=== PATIENT | male | born 1975 | race African-American/Black ===

== ENCOUNTER 2017-02-05 19:55 | Emergency (ER) | payer OTHER ==
[~2017-02-05] VITALS: Ht 175.3 cm; Wt 80.0 kg
[2017-02-05 20:10] VITALS: BP 156/97; PULSE 108; RESP 18; TEMP 98.5; O2SAT 97
--- NOTE | 2017-02-05 20:49 | PD ---
HPI Chief Complaint: Psychiatric Symptoms Time Seen by Provider: 20:46 Travel History International Travel<30 days: No Contact w/Intl Traveler<30days: No Traveled to known affect area: No History of Present Illness HPI 41-year-old male presents to the emergency department for Bustos act by local police. According the Bustos act, the patient went to a [employer] and told people he was suicidal and wanted to come off they could not a bridge. The [place] He has been feeling suicidal since. He states he took a [employer] down here to get out of the snow. He has no family in [place]. The patient states that his plan is to jump off a pier. He denies any attempt at this point to hurt himself. The patient denies any medical complaints. He states that he does drink alcohol daily. He has a smell of alcohol on his breath and states that he has been drinking today, but will not tell me how much he has had to drink. Patient also admits to smoking marijuana, but denies any other drug use. Patient denies any medical complaints at this time. Patient states he is living on the streets. [facility] Social History Alcohol Use: Yes Tobacco Use: Yes Substance Use: Yes Allergies-Medications (Allergen,Severity, Reaction): Coded Allergies: No Known Allergies (Unverified , 02/05/17) Reported Meds & Prescriptions Reported Meds & Active Scripts Active No Active Prescriptions or Reported Medications Review of Systems Except as stated in HPI: all other systems reviewed are Neg Physical Exam Narrative GENERAL: Well-developed well-nourished male patient ambulatory. Afebrile., SKIN: Warm and dry. HEAD: Normocephalic. Atraumatic. EYES: No scleral icterus. No injection or drainage. NECK: Supple, trachea midline. No JVD or lymphadenopathy. CARDIOVASCULAR: Regular rate and rhythm without murmurs, gallops, or rubs. RESPIRATORY: Breath sounds equal bilaterally. No accessory muscle use. Lungs sounds are clear to auscultation. GASTROINTESTINAL: Abdomen soft, non-tender, nondistended. MUSCULOSKELETAL: No cyanosis, or edema. PSYCHIATRIC: No delusional thought processes. No hallucinations. Data Data Last Documented VS Vital Signs Date Time Temp Pulse Resp B/P Pulse Ox O2 Delivery O2 Flow Rate FiO2 02/05/17 21:56 92 16 142/78 97 Room Air 02/05/17 20:10 98.5 Orders Complete Blood Count With Diff (02/05/17 20:45) Comprehensive Metabolic Panel (02/05/17 20:45) Psych Screen (02/05/17 20:45) Drug Screen, Random Urine (02/05/17 20:45) Alcohol (Ethanol) (02/05/17 20:45) Nicotine 7 Mg Patch.24 Hr (Habitrol 7 M (02/05/17 22:00) Labs Laboratory Tests Test 02/05/17 20:50 White Blood Count 8.4 TH/MM3 Red Blood Count 4.25 MIL/MM3 Hemoglobin 14.5 GM/DL Hematocrit 42.0 % Mean Corpuscular Volume 98.9 FL Mean Corpuscular Hemoglobin 34.2 PG Mean Corpuscular Hemoglobin 34.6 % Concent Red Cell Distribution Width 13.1 % Platelet Count 266 TH/MM3 Mean Platelet Volume 7.9 FL Neutrophils (%) (Auto) 55.6 % Lymphocytes (%) (Auto) 25.3 % Monocytes (%) (Auto) 10.7 % Eosinophils (%) (Auto) 7.0 % Basophils (%) (Auto) 1.4 % Neutrophils # (Auto) 4.6 TH/MM3 Lymphocytes # (Auto) 2.1 TH/MM3 Monocytes # (Auto) 0.9 TH/MM3 Eosinophils # (Auto) 0.6 TH/MM3 Basophils # (Auto) 0.1 TH/MM3 CBC Comment DIFF FINAL Differential Comment Sodium Level 138 MEQ/L Potassium Level 3.8 MEQ/L Chloride Level 104 MEQ/L Carbon Dioxide Level 25.2 MEQ/L Anion Gap 9 MEQ/L Blood Urea Nitrogen 6 MG/DL Creatinine 0.89 MG/DL Estimat Glomerular Filtration 115 ML/MIN Rate Random Glucose 86 MG/DL Calcium Level 8.7 MG/DL Total Bilirubin 0.2 MG/DL Aspartate Amino Transf 77 U/L (AST/SGOT) Alanine Aminotransferase 52 U/L (ALT/SGPT) Alkaline Phosphatase 101 U/L Total Protein 7.9 GM/DL Albumin 3.6 GM/DL Urine Opiates Screen NEG Urine Barbiturates Screen NEG Urine Amphetamines Screen NEG Urine Benzodiazepines Screen NEG Urine Cocaine Screen NEG Urine Cannabinoids Screen NEG Ethyl Alcohol Level 124 MG/DL MDM Medical Decision Making Medical Screen Exam Complete: Yes Emergency Medical Condition: Yes Medical Record Reviewed: Yes Differential Diagnosis Depression versus anxiety versus substance abuse versus alcohol intoxication versus bipolar disorder Narrative Course 41-year-old male presents to the emergency Department under Bustos act by local police for suicidal ideation. CBC, CMP, alcohol level, urine drug screen are ordered and pending. CBC shows no acute abnormality. CMP shows no acute abnormality. Alcohol level is 124. Urine drug screen is negative. Patient is medically cleared for psychiatric screening and disposition. Mental health screening discussed with the patient. Psychiatric screen ordered. Diagnosis Primary Impression: Depression with suicidal ideation Additional Instructions: Patient is medically cleared for psychiatric screening and disposition. Scripts No Active Prescriptions or Reported Meds Condition: Stable Shyanne Kahn Feb 05, 2017 20:49
[2017-02-05 21:49] LABS: AMPHETAMINE, URINE NEG (NEG); BARBITURATES, URINE NEG (NEG); COCAINE, URINE NEG (NEG)
[2017-02-05 21:56] VITALS: BP 142/78; PULSE 92; RESP 16; O2SAT 97
[2017-02-05] MEDS ORDERED: NICOTINE 7 MG/24 HR PATCH TD ONE (22:00)
[2017-02-05 22:02] LABS: AUTOMATED NEUTROPHIL # 4.6 TH/MM3 (1.8-7.7); BASOPHIL # 0.1 TH/MM3 (0-0.2); BASOPHIL % 1.4 % (0.0-2.0); EOSINOPHIL # 0.6 TH/MM3 (0-0.4); HEMO FLAGS DIFF FINAL; LYMPH % 25.3 % (9.0-44.0); LYMPHOCYTE # 2.1 TH/MM3 (1.0-4.8); MEAN CELL VOLUME 98.9 FL (80.0-100.0); MEAN CORPUSCULAR HEMOGLOBIN 34.2 PG (27.0-34.0); MEAN CORPUSCULAR HGB CONC 34.6 % (32.0-36.0); MONO % 10.7 % (0.0-8.0); NEUT % 55.6 % (16.0-70.0); PLATELET COUNT 266 TH/MM3 (150-450); RED BLOOD COUNT 4.25 MIL/MM3 (4.50-5.90); RED CELL DISTRIBUTION WIDTH 13.1 % (11.6-17.2); WHITE BLOOD COUNT 8.4 TH/MM3 (4.0-11.0)
[2017-02-05 22:10] LABS: ALKALINE PHOSPHATASE 101 U/L (45-117); ALT (GPT) 52 U/L (12-78); ANION GAP 9 MEQ/L (5-15); AST (GOT) 77 U/L (15-37); BICARBONATE 25.2 MEQ/L (21.0-32.0); BLOOD UREA NITROGEN 6 MG/DL (7-18); CHLORIDE 104 MEQ/L (98-107); GLOMERULAR FILTRATION RATE 115 ML/MIN (>89); SODIUM (NA) 138 MEQ/L (136-145); TOTAL BILIRUBIN ADULT 0.2 MG/DL (0.2-1.0)
[2017-02-05 22:11] LABS: POTASSIUM 3.8 MEQ/L (3.5-5.1)
[2017-02-06 02:12] VITALS: BP 141/85; PULSE 91; RESP 19; O2SAT 96
== END 2017-02-06 06:10 ==
LOC: NEPA 19:55 → NEPJ 02-06 06:10
DX: F32.9 Major depressive disorder, single episode, unspecified (principal); F12.90 Cannabis use, unspecified, uncomplicated
CPT/HCPCS: 80053; 80307; 85025; 99285